=== PATIENT | male | born 1990 | race African-American/Black ===

== ENCOUNTER 2025-07-26 17:04 | Emergency (ER) | payer OTHER, MEDICAID ==
[~2025-07-26] VITALS: Ht 185.4 cm; Wt 118.0 kg
[2025-07-26 17:17] VITALS: O2SAT 100
[2025-07-26] MEDS ORDERED: IBUP-1455 MT (22:14)
[2025-07-26] MEDS ORDERED: CYCL10TA21 MT (22:14)
[2025-07-26] MEDS: CYCLOBENZAPRINE 10MG TABLET PO ONE (22:32)
[2025-07-26] MEDS: KETOROLAC 30MG/ML VIAL IM ONE (22:33)
[2025-07-26 22:38] VITALS: BP 136/89; PULSE 61; RESP 16; TEMP 36.8; O2SAT 100
== END 2025-07-26 22:53 | disposition home or self-care (01) ==
LOC: ER 17:04
DX: S20.211A Contusion of right front wall of thorax, initial encounter (principal); S50.01XA Contusion of right elbow, initial encounter; M25.511 Pain in right shoulder; X58.XXXA Exposure to other specified factors, initial encounter; Y92.410 Unspecified street and highway as the place of occurrence of the external cause; Y93.01 Activity, walking, marching and hiking; Y99.8 Other external cause status
CPT/HCPCS: 71045; 73030; 73080; 93005; 96372; 99284; J1885; Z7610